=== PATIENT | male | born 1990 | race Caucasian/White ===

== ENCOUNTER 2016-07-16 06:07 | Emergency (ER) | payer SELFPAY ==
[~2016-07-16] VITALS: Ht 182.9 cm; Wt 86.0 kg
[2016-07-16 06:09] VITALS: BP 119/76; PULSE 57; RESP 16; TEMP 97.4; O2SAT 99
[2016-07-16] MEDS ORDERED: HUMALOG SQ (06:28)
[2016-07-16] MEDS ORDERED: SITA25 PO (06:28)
--- NOTE | 2016-07-16 06:41 | PD ---
HPI Chief Complaint: Psychiatric Symptoms Time Seen by Provider: 06:41 Travel History International Travel<30 days: No Contact w/Intl Traveler<30days: No Traveled to known affect area: No History of Present Illness HPI 26-year-old male presents to emergency department for psychiatric evaluation. Patient states he is very depressed and suicidal thoughts. He does not have an active plan. He has no history of depression but states since being diagnosed with type 1 diabetes one year ago he seems to be experiencing more of it. He states he "cannot live with his diabetes." Does not currently have insurance and is having difficulty controlling his blood glucose. Denies any recent illnesses. Denies any illicit drug use. No other symptoms to report. PFSH Past Medical History Diabetes: Yes (TYPE 1) Patient Takes Glucophage: No Diminished Hearing: No Past Surgical History Surgical History: No Previous Surgery Social History Alcohol Use: Yes (OCC) Tobacco Use: Yes Substance Use: Yes (MARIJUANA) Allergies-Medications (Allergen,Severity, Reaction): Coded Allergies: No Known Allergies (Unverified , 07/16/16) Reported Meds & Prescriptions Reported Meds & Active Scripts Active Reported Humalog Inj (Insulin Human Lispro) 1,000 Unit/10 Ml Vial 2-12 Units SQ ACHS Max dose at bedtime:( )units; sugars < 70,(0)units; sugars 150-199,(2)units; sugars 200-249,(4)units; sugars 250-299,(7)units; sugars 300-349,(10)units; sugars more than 349,(12)units. Januvia (Sitagliptin Phosphate) 25 Mg Tab 25 Mg PO DAILY Review of Systems Except as stated in HPI: all other systems reviewed are Neg Physical Exam Narrative GENERAL: Well-nourished male patient, ambulatory and in no acute distress. Patient is tearful and upset about his current situation SKIN: Warm and dry. HEAD: Atraumatic. Normocephalic. EYES: Pupils equal and round. No scleral icterus. No injection or drainage. ENT: No nasal bleeding or discharge. Mucous membranes pink and moist. NECK: Trachea midline. No JVD. CARDIOVASCULAR: Regular rate and rhythm. No murmur appreciated. RESPIRATORY: No accessory muscle use. Clear to auscultation. Breath sounds equal bilaterally. GASTROINTESTINAL: Abdomen soft, non-tender, nondistended. Hepatic and splenic margins not palpable. MUSCULOSKELETAL: No obvious deformities. No clubbing. No cyanosis. No edema. NEUROLOGICAL: Awake and alert. No obvious cranial nerve deficits. Motor grossly within normal limits. Normal speech. Data Data Last Documented VS Vital Signs Date Time Temp Pulse Resp B/P Pulse Ox O2 Delivery O2 Flow Rate FiO2 07/16/16 08:29 97.6 54 18 109/58 99 Room Air Orders Complete Blood Count With Diff (07/16/16 06:33) Basic Metabolic Panel (Bmp) (07/16/16 06:33) Drug Screen, Random Urine (07/16/16 06:33) Alcohol (Ethanol) (07/16/16 06:33) Psych Screen (07/16/16 06:33) Insulin Human Reg Supp Scale (Novolin R (07/16/16 11:00) Insulin Human Regular Inj (Novolin R Inj (07/16/16 07:45) Diet Regular Basic (07/16/16 Breakfast) Diet Regular Basic (07/16/16 Lunch) Labs Laboratory Tests Test 07/16/16 07/16/16 06:40 08:25 White Blood Count 6.3 TH/MM3 Red Blood Count 4.52 MIL/MM3 Hemoglobin 14.1 GM/DL Hematocrit 41.4 % Mean Corpuscular Volume 91.6 FL Mean Corpuscular Hemoglobin 31.1 PG Mean Corpuscular Hemoglobin 34.0 % Concent Red Cell Distribution Width 12.6 % Platelet Count 196 TH/MM3 Mean Platelet Volume 9.4 FL Neutrophils (%) (Auto) 52.8 % Lymphocytes (%) (Auto) 37.1 % Monocytes (%) (Auto) 6.9 % Eosinophils (%) (Auto) 2.7 % Basophils (%) (Auto) 0.5 % Neutrophils # (Auto) 3.3 TH/MM3 Lymphocytes # (Auto) 2.3 TH/MM3 Monocytes # (Auto) 0.4 TH/MM3 Eosinophils # (Auto) 0.2 TH/MM3 Basophils # (Auto) 0.0 TH/MM3 CBC Comment DIFF FINAL Differential Comment Sodium Level 138 MEQ/L Potassium Level 3.8 MEQ/L Chloride Level 105 MEQ/L Carbon Dioxide Level 26.3 MEQ/L Anion Gap 7 MEQ/L Blood Urea Nitrogen 12 MG/DL Creatinine 1.04 MG/DL Estimat Glomerular Filtration 86 ML/MIN Rate Random Glucose 314 MG/DL Calcium Level 8.3 MG/DL Ethyl Alcohol Level LESS THAN 3 MG/DL Urine Opiates Screen NEG Urine Barbiturates Screen NEG Urine Amphetamines Screen NEG Urine Benzodiazepines Screen NEG Urine Cocaine Screen POS Urine Cannabinoids Screen POS MDM Medical Decision Making Medical Screen Exam Complete: Yes Emergency Medical Condition: Yes Medical Record Reviewed: Yes Differential Diagnosis Mood disorder versus personality disorder versus adjustment reaction disorder Narrative Course 26-year-old male presents to emergency department voluntarily for psychiatric evaluation. Patient appears without distress. He is tearful and verbalizing suicidal thoughts without a plan. CBC is without acute concern. BMP is with hyperglycemia 314. Patient is given 10 units subcutaneous regular insulin. He is placed on a sliding scale for the duration of his stay. Toxicology is positive for cocaine and cannabinoids He is medically cleared to undergo psychiatric screening for further evaluation and disposition. Diagnosis Primary Impression: Adjustment disorder with depressed mood Condition: Stable Jessica Baumann Jul 16, 2016 06:41
[2016-07-16 07:08] LABS: AUTOMATED NEUTROPHIL # 3.3 TH/MM3 (1.8-7.7); BASOPHIL % 0.5 % (0.0-2.0); EOSINOPHIL # 0.2 TH/MM3 (0-0.4); EOSINOPHIL % 2.7 % (0.0-4.0); HEMATOCRIT 41.4 % (39.0-51.0); HEMO FLAGS DIFF FINAL; LYMPH % 37.1 % (9.0-44.0); LYMPHOCYTE # 2.3 TH/MM3 (1.0-4.8); MEAN CELL VOLUME 91.6 FL (80.0-100.0); MEAN CORPUSCULAR HEMOGLOBIN 31.1 PG (27.0-34.0); MONO % 6.9 % (0.0-8.0); NEUT % 52.8 % (16.0-70.0); PLATELET COUNT 196 TH/MM3 (150-450); RED BLOOD COUNT 4.52 MIL/MM3 (4.50-5.90); RED CELL DISTRIBUTION WIDTH 12.6 % (11.6-17.2); WHITE BLOOD COUNT 6.3 TH/MM3 (4.0-11.0)
[2016-07-16 07:17] LABS: ANION GAP 7 MEQ/L (5-15); BICARBONATE 26.3 MEQ/L (21.0-32.0); BLOOD UREA NITROGEN 12 MG/DL (7-18); CHLORIDE 105 MEQ/L (98-107); GLOMERULAR FILTRATION RATE 86 ML/MIN (>89); POTASSIUM 3.8 MEQ/L (3.5-5.1); SODIUM (NA) 138 MEQ/L (136-145)
[2016-07-16] MEDS ORDERED: INSULIN HUMAN REGULAR 1,000 UNITS/10 ML VIAL SQ ONE (07:45)
[2016-07-16 08:29] VITALS: BP 109/58; PULSE 54; RESP 18; TEMP 97.6; O2SAT 99
[2016-07-16 09:09] LABS: AMPHETAMINE, URINE NEG (NEG); BARBITURATES, URINE NEG (NEG); COCAINE, URINE POS (NEG)
[2016-07-16] MEDS ORDERED: INSULIN NovoLIN REGULAR SUPPLEMENTAL SCALE SQ SCH (11:00)
--- NOTE | 2016-07-16 18:08 | PD ---
History of Present Illness Chief Complaint: Psychiatric Symptoms Time Seen by Provider: 17:30 Travel History International Travel<30 Days: No Contact w/Intl Traveler<30days: No Known affected area: No Legal Status Legal Status: Voluntary History of Present Illness: HPI 26 year old male with no psychiatric history who presents to ED on a voluntary basis for evaluation of depression and stress.He reports that he was dx with diabetes one year ago and since that time he has had difficulty coping with his diagnosis as well as difficulty maintaining control of his illness.He was having a conversation with his girlfriend and during this conversation he made a comment about his continued use of insulin and that he felt that life didn't matter. His girlfriend became concerned and brought him to the ED for evaluation. As per EMR review he has not had any previous contact with [facility] psychiatry. He denies any previous psychiatric history. He denies any substance use but positive toxicology for cannabinoids and cocaine. Patient is wake, alert and oriented. Speech is clear and logical. He is forthcoming in discussing his frustrations having to deal with a persistent illness. He acknowledges feeling stressed as he has had poor control of his blood sugars. His mood is depressed but he is able to function on a day to day basis. There is no suicidal or homicidal ideation, intent or plan. In terms of the statements he denies that he meant to imply that he was planning on hurting himself and he sates " Even if I thought about it I never would have the courage to do anything". There is no psychosis and no janett. PFSH Past Medical History Diabetes: Yes (TYPE 1) Patient Takes Glucophage: No Diminished Hearing: No Past Surgical History Surgical History: No Previous Surgery Psychiatric History Psychiatric History Hx Psychiatric Treatment: Pt denied any previous psych history History of Inpatient Treatment: No Guns or firearms in home: No Social History Completed high school. 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 Lives with his girlfriend of 8 years. Born in [place] Hx Alcohol Use: Yes (OCC) Hx Tobacco Use: Yes Hx Substance Use: Yes Substance Use Type: Alcohol, Marijuana, Cocaine Other Substances Used: occasionally/smokes when drinks Hx of Substance Use Treatment: No Family Psychiatric History Grandmother w hx of multiple psychiatric hosp . ? dx Allergies-Medications (Allergen,Severity, Reaction): Coded Allergies: No Known Allergies (Unverified , 07/16/16) Reported Meds & Prescriptions Reported Meds & Active Scripts Active Reported Humalog Inj (Insulin Human Lispro) 1,000 Unit/10 Ml Vial 2-12 Units SQ ACHS Max dose at bedtime:( )units; sugars < 70,(0)units; sugars 150-199,(2)units; sugars 200-249,(4)units; sugars 250-299,(7)units; sugars 300-349,(10)units; sugars more than 349,(12)units. Januvia (Sitagliptin Phosphate) 25 Mg Tab 25 Mg PO DAILY Review of Systems Constitutional: COMPLAINS OF: Fatigue Endocrine: COMPLAINS OF: Polydipsia, Polyuria Eyes: COMPLAINS OF: Blurred vision Ears, nose, mouth, throat: DENIES: Tinnitus, Hearing loss, Vertigo, Nasal discharge, Oral lesions, Throat pain, Hoarseness, Ear Pain, Running Nose, Epistaxis, Sinus Pain, Toothache, Odynophagia Respiratory: DENIES: Apneas, Cough, Snoring, Wheezing, Hemoptysis, Sputum production, Shortness of breath Cardiovascular: DENIES: Chest pain, Palpitations, Syncope, Dyspnea on Exertion , PND, Lower Extremity Edema, Orthopnea, Claudication Gastrointestinal: DENIES: Abdominal pain, Black stools, Bloody stools, Constipation, Diarrhea, Nausea, Vomiting, Difficulty Swallowing, Anorexia Genitourinary: DENIES: Sexual dysfunction, Urinary frequency, Urinary incontinence, Urgency, Hematuria, Dysuria, Nocturia, Penile Discharge, Testicular Pain, Testicular Swelling Musculoskeletal: DENIES: Joint pain, Muscle aches, Stiffness, Joint Swelling, Back pain, Neck pain Integumentary: DENIES: Abnormal pigmentation, Nail changes, Pruritus, Rash Hematologic/lymphatic: DENIES: Bruising, Lymphadenopathy Immunologic/allergic: DENIES: Eczema, Urticaria Neurologic: DENIES: Abnormal gait, Headache, Localized weakness, Paresthesias, Seizures, Speech Problems, Tremor, Poor Balance Psychiatric: COMPLAINS OF: Depression Exam Alert: Yes [place]: Person (ox4) Mood: Depressed Affect: Euthymic Speech: Clear, Logical Eye Contact: Normal Memory Intact: Comment (no impairment) Hallucinations: Other (negative) Delusions: No Suicidal: Ideation (deneis any) Homicidal: Ideation (deneis any) Insight/Judgement fair. not impaired MDM Medical Decision Making Medical Record Reviewed: Yes Assessment/Plan 26 year old with no previous psychiatric history who presents under a voluntary basis for evaluation. He reports experiencing difficulty managing the burden of his diabetes and becoming frustrated with the persistent nature of such. He presents with symptoms of depression but at this time does not warrant inpatient psychiatric care. There is no psychosis and no janett. He may benefit from outpatient counseling as well as teaching and support from a diabetes support/ education group. His use of cocaine can certainly contribute to his mood disorder but he denies using cocaine during psychiatric screening. Will discharge at this [facility] with recommendation to follow up with outpatient care. Orders Complete Blood Count With Diff (07/16/16 06:33) Basic Metabolic Panel (Bmp) (07/16/16 06:33) Drug Screen, Random Urine (07/16/16 06:33) Alcohol (Ethanol) (07/16/16 06:33) Psych Screen (07/16/16 06:33) Insulin Human Reg Supp Scale (Novolin R (07/16/16 11:00) Insulin Human Regular Inj (Novolin R Inj (07/16/16 07:45) Diet Regular Basic (07/16/16 Breakfast) Diet Regular Basic (07/16/16 Lunch) Diet Diabetic (07/16/16 Dinner) Results Vital Signs Date Time Temp Pulse Resp B/P Pulse Ox O2 Delivery O2 Flow Rate FiO2 07/16/16 08:29 97.6 54 18 109/58 99 Room Air 07/16/16 06:09 97.4 57 16 119/76 99 Laboratory Tests Test 07/16/16 07/16/16 06:40 08:25 White Blood Count 6.3 Red Blood Count 4.52 Hemoglobin 14.1 Hematocrit 41.4 Mean Corpuscular Volume 91.6 Mean Corpuscular Hemoglobin 31.1 Mean Corpuscular Hemoglobin 34.0 Concent Red Cell Distribution Width 12.6 Platelet Count 196 Mean Platelet Volume 9.4 Neutrophils (%) (Auto) 52.8 Lymphocytes (%) (Auto) 37.1 Monocytes (%) (Auto) 6.9 Eosinophils (%) (Auto) 2.7 Basophils (%) (Auto) 0.5 Neutrophils # (Auto) 3.3 Lymphocytes # (Auto) 2.3 Monocytes # (Auto) 0.4 Eosinophils # (Auto) 0.2 Basophils # (Auto) 0.0 CBC Comment DIFF FINAL Differential Comment Sodium Level 138 Potassium Level 3.8 Chloride Level 105 Carbon Dioxide Level 26.3 Anion Gap 7 Blood Urea Nitrogen 12 Creatinine 1.04 Estimat Glomerular Filtration 86 Rate Random Glucose 314 Calcium Level 8.3 Ethyl Alcohol Level LESS THAN 3 Urine Opiates Screen NEG Urine Barbiturates Screen NEG Urine Amphetamines Screen NEG Urine Benzodiazepines Screen NEG Urine Cocaine Screen POS Urine Cannabinoids Screen POS Diagnosis Primary Impression: Adjustment disorder with depressed mood Psychiatrically Cleared: Yes Referrals: [facility] (Out patient) call for appointment Departure Forms: Tests/Procedures Patient Instructions: General Instructions, Stress (ED), Type 1 Diabetes in Adults (ED) Disposition: 01 DISCHARGE HOME Condition: Stable Laure Hidalgo Jul 16, 2016 18:08
== END 2016-07-16 18:49 | disposition home or self-care (01) ==
LOC: NEPB 06:07 → NEPJ 18:49
DX: F43.21 Adjustment disorder with depressed mood (principal); E10.9 Type 1 diabetes mellitus without complications; Z72.0 Tobacco use
CPT/HCPCS: 80048; 80307; 80320; 85025; 96372; 99283; J1815